=== PATIENT | female | born 1990 | race Caucasian/White ===

== ENCOUNTER 2021-08-12 03:21 | Emergency (ER) | payer BC ==
[~2021-08-12] VITALS: Ht 175.3 cm; Wt 86.2 kg
[2021-08-12 03:35] VITALS: BP 144/98
[2021-08-12] MEDS ORDERED: TDAP [DIPH/PERTUSSIS/TET] 0.5 ML VIAL IM ONE ×2 (03:45→04:00)
--- NOTE | 2021-08-12 03:49 | NUR ---
Patient discharged to home in stable condition. Written and verbal after care instructions given. Patient verbalizes understanding of instruction.
== END 2021-08-12 03:50 | disposition home or self-care (01) ==
LOC: ER 03:25
DX: S81.011A Laceration without foreign body, right knee, initial encounter (principal); W01.0XXA Fall on same level from slipping, tripping and stumbling without subsequent striking against object, initial encounter; Y93.89 Activity, other specified; Y92.89 Other specified places as the place of occurrence of the external cause; Y99.8 Other external cause status
CPT/HCPCS: 90715